=== PATIENT | female | born 1970 | race Caucasian/White ===

== ENCOUNTER 2024-05-18 04:21 | Inpatient (IN) ==
[2024-05-18] MEDS: ONDANSETRON 4 MG/2 ML VIAL IV ONE ×2 (05:01→08:22)
[2024-05-18] MEDS: fentaNYL 100 MCG/2 ML VIAL IV ONE (05:01)
[2024-05-18 05:25] LABS: Basophils # (Auto) 0.03 K/mcL (0.00-0.30); Basophils % (Auto) 0.7 % (0.0-2.0); Eosinophils # (Auto) 0.08 K/mcL (0.00-0.70); Eosinophils % (Auto) 1.8 % (0.0-7.0); Hematocrit 33.4 % (34.1-44.9); Hemoglobin 10.6 g/dL (11.2-15.7); Lymphocytes # (Auto) 1.82 K/mcL (1.50-4.80); Mean Cell Volume 97.1 fL (80.0-100.0); Mean Corpuscular HGB Conc 31.7 g/dL (31.0-36.0); Mean Platelet Volume 11.1 fL (8.8-12.5); Monocytes # (Auto) 0.33 K/mcL (0.10-0.90); Monocytes % (Auto) 7.3 % (1.0-12.0); Neutrophils % (Auto) 50.2 % (38.0-78.0); Platelet Count 100 K/mcL (140-440); RBC 3.44 M/mcL (3.59-5.38); Red Cell Distribution Width 15.8 % (11.5-14.5); WBC 4.6 K/mcL (4.5-11.0)
[2024-05-18 05:39] LABS: Alcohol, Blood 86.3 mg/dL; Alcohol,Blood 0.086 gm/dL (<0.010)
[2024-05-18 05:46] LABS: ALT/SGPT 55 U/L (<40); AST/SGOT 279 U/L (<32); Albumin 4.1 gm/dL (3.2-5.2); Alkaline Phosphatase 262 U/L (39-117); Bilirubin,Total 1.1 mg/dL (0.1-1.0); Blood Urea Nitrogen 3 mg/dL (6-20); Calcium 8.5 mg/dL (8.6-10.4); Carbon Dioxide 21 mmol/L (22-30); Chloride 101 mmol/L (96-108); Glomerular Filtration Rate 97; Glucose 102 mg/dL (70-105); Potassium 2.9 mmol/L (3.3-5.1); Sodium 141 mmol/L (133-145)
[2024-05-18 05:56] LABS: INR 1.2 (0.9-1.1); Prothrombin Time 15.8 sec (11.9-14.5)
[2024-05-18] MEDS: morphine 4 MG/ML VIAL IV ONE (06:38)
[2024-05-18] MEDS: POTASSIUM CHLORIDE 40 MEQ in DEXTROSE 5% IN WATER 500 ML IV ONE (07:49)
[2024-05-18] MEDS: cefTRIAXone 2 GM in DEXTROSE 5% IN WATER 50 ML IV SCH (09:36)
[2024-05-18] MEDS: THIAMINE 200 MG in 0.9 % SODIUM CHLORIDE 50 ML IV SCH (09:51)
[2024-05-18] MEDS ORDERED: LACTULOSE 20 GM/30 ML ORAL.SOL PO PRN (10:24)
[2024-05-18] MEDS: LORazepam 2 MG/ML VIAL IV SCH (10:42)
[2024-05-18] MEDS: 0.9 % SODIUM CHLORIDE 1,000 ML IV SCH (10:43)
[2024-05-18] MEDS: 0.9 % SODIUM CHLORIDE 250 ML IV SCH (11:15)
[2024-05-18] MEDS: PANTOPRAZOLE 80 MG in 0.9 % SODIUM CHLORIDE 100 ML IV SCH (11:17)
[2024-05-18 12:02] LABS: Hematocrit 31.2 % (34.1-44.9); Hemoglobin 9.8 g/dL (11.2-15.7)
[2024-05-18] MEDS: morphine 4 MG/ML VIAL IV SCH (12:12)
[2024-05-18] MEDS: LORazepam 2 MG/ML VIAL IV PRN (12:16)
[2024-05-18] MEDS: OCTREOTIDE ACETATE 500 MCG in 0.9 % SODIUM CHLORIDE 499.5 ML IV SCH (12:37)
[2024-05-18] MEDS: 0.9 % SODIUM CHLORIDE 10 ML SYRINGE IV SCH ×2 (14:03)
[2024-05-18 16:46] LABS: Hematocrit 28.4 % (34.1-44.9); Hemoglobin 9.3 g/dL (11.2-15.7)
[2024-05-18] MEDS: ONDANSETRON 4 MG/2 ML VIAL IV PRN (18:16)
[2024-05-18 18:21] LABS: Potassium 3.8 mmol/L (3.3-5.1)
[2024-05-18] MEDS: morphine 2 MG/ML VIAL IV ONE (18:40)
[2024-05-18] MEDS: morphine 2 MG/ML VIAL ONE (18:45)
[2024-05-18] MEDS: LORazepam 2 MG/ML VIAL IV ONE (22:30)
[2024-05-18 23:01] LABS: Hematocrit 27.2 % (34.1-44.9); Hemoglobin 8.7 g/dL (11.2-15.7)
[2024-05-18] MEDS: PROCHLORPERAZINE 10 MG/2 ML VIAL IV ONE (23:27)
[2024-05-18] MEDS: GABAPENTIN 100 MG CAPSULE PO ONE (23:30)
[2024-05-19] MEDS: LORazepam 2 MG/ML VIAL IV PRN (04:14)
[2024-05-19 06:44] LABS: ALT/SGPT 38 U/L (<40); AST/SGOT 161 U/L (<32); Albumin 3.3 gm/dL (3.2-5.2); Albumin/Globulin Ratio 1.1 (1.0-2.3); Alkaline Phosphatase 178 U/L (39-117); Bilirubin,Direct 0.7 mg/dL (<0.3); Bilirubin,Total 1.1 mg/dL (0.1-1.0); Blood Urea Nitrogen 4 mg/dL (6-20); Calcium 7.4 mg/dL (8.6-10.4); Carbon Dioxide 23 mmol/L (22-30); Chloride 107 mmol/L (96-108); Globulin 2.9 gm/dL (2.2-3.7); Glomerular Filtration Rate 97; Glucose 122 mg/dL (70-105); Lactate Dehydrogenase 181 U/L (135-225); Phosphorous 3.2 mg/dL (2.5-4.5); Sodium 142 mmol/L (133-145); Triglycerides 109 mg/dL (<150); Uric Acid 5.8 mg/dL (2.5-8.0)
[2024-05-19 07:21] LABS: INR 1.3 (0.9-1.1); Prothrombin Time 17.1 sec (11.9-14.5)
[2024-05-19 07:22] LABS: Basophils # (Auto) 0.01 K/mcL (0.00-0.30); Basophils % (Auto) 0.6 % (0.0-2.0); Eosinophils # (Auto) 0.05 K/mcL (0.00-0.70); Eosinophils % (Auto) 3.2 % (0.0-7.0); Hematocrit 25.6 % (34.1-44.9); Hemoglobin 8.1 g/dL (11.2-15.7); Lymphocytes # (Auto) 0.51 K/mcL (1.50-4.80); Lymphocytes % (Auto) 32.7 % (15.5-49.0); Mean Cell Volume 98.1 fL (80.0-100.0); Mean Corpuscular HGB Conc 31.6 g/dL (31.0-36.0); Mean Platelet Volume 11.2 fL (8.8-12.5); Monocytes # (Auto) 0.12 K/mcL (0.10-0.90); Monocytes % (Auto) 7.7 % (1.0-12.0); Neutrophils % (Auto) 55.8 % (38.0-78.0); Platelet Count 48 K/mcL (140-440); RBC 2.61 M/mcL (3.59-5.38); WBC 1.6 K/mcL (4.5-11.0)
[2024-05-19] MEDS: THIAMINE 100 MG in 0.9 % SODIUM CHLORIDE 50 ML IV SCH (09:00)
[2024-05-19] MEDS: GABAPENTIN 300 MG CAPSULE PO SCH (09:00)
[2024-05-19] MEDS: cefTRIAXone 1 GM VIAL IV SCH (09:01)
[2024-05-19] MEDS: POTASSIUM CHLORIDE 10 MEQ/100 ML BAG IV SCH (10:41)
[2024-05-19 11:13] LABS: Hematocrit 29.5 % (34.1-44.9); Hemoglobin 9.5 g/dL (11.2-15.7)
[2024-05-19] MEDS: morphine 2 MG/ML VIAL IV ONE (15:50)
[2024-05-19 16:58] LABS: Basophils # (Auto) 0.01 K/mcL (0.00-0.30); Basophils % (Auto) 0.4 % (0.0-2.0); Eosinophils # (Auto) 0.06 K/mcL (0.00-0.70); Eosinophils % (Auto) 2.3 % (0.0-7.0); Hematocrit 31.1 % (34.1-44.9); Hemoglobin 9.1 g/dL (11.2-15.7); Lymphocytes # (Auto) 0.72 K/mcL (1.50-4.80); Lymphocytes % (Auto) 27.2 % (15.5-49.0); Mean Cell Volume 106.5 fL (80.0-100.0); Mean Corpuscular HGB Conc 29.3 g/dL (31.0-36.0); Mean Platelet Volume 11.7 fL (8.8-12.5); Monocytes % (Auto) 7.5 % (1.0-12.0); Neutrophils % (Auto) 62.6 % (38.0-78.0); Platelet Count 61 K/mcL (140-440); RBC 2.92 M/mcL (3.59-5.38); Red Cell Distribution Width 16.2 % (11.5-14.5); WBC 2.7 K/mcL (4.5-11.0)
[2024-05-19] MEDS: morphine 2 MG/ML VIAL ONE (17:08)
[2024-05-19] MEDS: PANTOPRAZOLE 80 MG in 0.9 % SODIUM CHLORIDE 100 ML IV SCH (18:20)
[2024-05-19 18:38] LABS: Potassium 3.8 mmol/L (3.3-5.1)
[2024-05-19] MEDS: POTASSIUM CHLORIDE 40 MEQ in DEXTROSE 5% IN WATER 250 ML IV ONE (19:29)
[2024-05-19] MEDS: GABAPENTIN 400 MG CAPSULE PO SCH (20:07)
[2024-05-19 22:38] LABS: Hematocrit 28.8 % (34.1-44.9); Hemoglobin 8.6 g/dL (11.2-15.7)
[2024-05-19] MEDS: CYCLOBENZAPRINE 10 MG TABLET PO ONE (23:02)
[2024-05-20] MEDS: morphine 2 MG/ML VIAL IV ONE (01:55)
[2024-05-20] MEDS: morphine 2 MG/ML VIAL ONE (02:33)
[2024-05-20 07:02] LABS: ALT/SGPT 40 U/L (<40); AST/SGOT 176 U/L (<32); Albumin 3.1 gm/dL (3.2-5.2); Albumin/Globulin Ratio 1.1 (1.0-2.3); Alkaline Phosphatase 160 U/L (39-117); Bilirubin,Direct 0.6 mg/dL (<0.3); Blood Urea Nitrogen 3 mg/dL (6-20); Calcium 7.3 mg/dL (8.6-10.4); Carbon Dioxide 21 mmol/L (22-30); Chloride 109 mmol/L (96-108); Globulin 2.8 gm/dL (2.2-3.7); Glomerular Filtration Rate 97; Glucose 122 mg/dL (70-105); Lactate Dehydrogenase 187 U/L (135-225); Phosphorous 2.5 mg/dL (2.5-4.5); Potassium 3.3 mmol/L (3.3-5.1); Sodium 142 mmol/L (133-145); Triglycerides 171 mg/dL (<150); Uric Acid 5.3 mg/dL (2.5-8.0)
[2024-05-20 07:05] LABS: Basophils # (Auto) 0.02 K/mcL (0.00-0.30); Basophils % (Auto) 0.9 % (0.0-2.0); Eosinophils # (Auto) 0.07 K/mcL (0.00-0.70); Eosinophils % (Auto) 3.2 % (0.0-7.0); Hematocrit 27.4 % (34.1-44.9); Hemoglobin 8.2 g/dL (11.2-15.7); Lymphocytes # (Auto) 0.84 K/mcL (1.50-4.80); Lymphocytes % (Auto) 38.9 % (15.5-49.0); Mean Cell Volume 103.8 fL (80.0-100.0); Mean Corpuscular HGB Conc 29.9 g/dL (31.0-36.0); Mean Platelet Volume 11.4 fL (8.8-12.5); Monocytes # (Auto) 0.17 K/mcL (0.10-0.90); Monocytes % (Auto) 7.9 % (1.0-12.0); Neutrophils % (Auto) 49.1 % (38.0-78.0); Platelet Count 56 K/mcL (140-440); RBC 2.64 M/mcL (3.59-5.38); Red Cell Distribution Width 16.2 % (11.5-14.5); WBC 2.2 K/mcL (4.5-11.0)
[2024-05-20 08:18] LABS: INR 1.3 (0.9-1.1); Prothrombin Time 16.7 sec (11.9-14.5)
[2024-05-20] MEDS: LACTULOSE 20 GM/30 ML ORAL.SOL PO SCH (11:23)
[2024-05-20] MEDS ORDERED: IPRATROPIUM/ALBUTEROL 3 ML AMPUL.NEB NEB PRN (11:36)
[2024-05-20] MEDS: POTASSIUM CHLORIDE 10 MEQ/100 ML BAG IV SCH (12:25)
[2024-05-20] MEDS: MAGNESIUM SULFATE 1 GM/100 ML BAG IV SCH (12:26)
[2024-05-20] MEDS: DEXTROSE 5%-1/2NS W/10MEQ KCL 1,000 ML IV SCH (17:07)
[2024-05-21] MEDS ORDERED: NALOXONE HCL 0.4 MG/ML VIAL IV PRN (02:16)
[2024-05-21] MEDS: THIAMINE 500 MG in 0.9 % SODIUM CHLORIDE 50 ML IV ONE (03:08)
[2024-05-21] MEDS: morphine 2 MG/ML VIAL IV PRN (03:15)
[2024-05-21] MEDS: morphine 2 MG/ML VIAL ONE (03:34)
[2024-05-21 06:57] LABS: Basophils # (Auto) 0.01 K/mcL (0.00-0.30); Basophils % (Auto) 0.4 % (0.0-2.0); Eosinophils # (Auto) 0.05 K/mcL (0.00-0.70); Eosinophils % (Auto) 2.2 % (0.0-7.0); Hematocrit 28.5 % (34.1-44.9); Hemoglobin 8.7 g/dL (11.2-15.7); Lymphocytes # (Auto) 0.68 K/mcL (1.50-4.80); Lymphocytes % (Auto) 29.6 % (15.5-49.0); Mean Cell Volume 102.2 fL (80.0-100.0); Mean Corpuscular HGB Conc 30.5 g/dL (31.0-36.0); Mean Platelet Volume 10.7 fL (8.8-12.5); Monocytes # (Auto) 0.19 K/mcL (0.10-0.90); Monocytes % (Auto) 8.3 % (1.0-12.0); Neutrophils % (Auto) 59.5 % (38.0-78.0); Platelet Count 65 K/mcL (140-440); RBC 2.79 M/mcL (3.59-5.38); Red Cell Distribution Width 16.2 % (11.5-14.5); WBC 2.3 K/mcL (4.5-11.0)
[2024-05-21 07:11] LABS: INR 1.4 (0.9-1.1); Prothrombin Time 17.2 sec (11.9-14.5)
[2024-05-21 07:17] LABS: ALT/SGPT 34 U/L (<40); AST/SGOT 116 U/L (<32); Albumin 3.2 gm/dL (3.2-5.2); Albumin/Globulin Ratio 1.2 (1.0-2.3); Alkaline Phosphatase 162 U/L (39-117); Bilirubin,Direct 0.7 mg/dL (<0.3); Bilirubin,Total 1.1 mg/dL (0.1-1.0); Blood Urea Nitrogen 2 mg/dL (6-20); Calcium 7.5 mg/dL (8.6-10.4); Carbon Dioxide 21 mmol/L (22-30); Chloride 109 mmol/L (96-108); Globulin 2.7 gm/dL (2.2-3.7); Glomerular Filtration Rate 97; Glucose 149 mg/dL (70-105); Lactate Dehydrogenase 187 U/L (135-225); Phosphorous 1.8 mg/dL (2.5-4.5); Potassium 3.1 mmol/L (3.3-5.1); Sodium 141 mmol/L (133-145); Triglycerides 170 mg/dL (<150); Uric Acid 4.9 mg/dL (2.5-8.0)
[2024-05-21 08:42] LABS: ABG Methemoglobin 0.4 % (0.4-1.5); Total Hemoglobin 10.1 gm/Dl (12.0-15.0); VBG Base Excess -2 (-2-3); VBG Oxygen Saturation 93.3 % (40.0-70.0); VBG PCO2 36.1 mmHg (41.0-51.0); VBG PO2 152.6 mmHg (25.0-40.0); VBG Total CO2 23.1 mmol/L (25.0-29.0)
[2024-05-21] MEDS: THIAMINE 500 MG in 0.9 % SODIUM CHLORIDE 50 ML IV SCH (09:15)
[2024-05-21] MEDS: LACTULOSE 20 GM/30 ML ORAL.SOL PO SCH (10:33)
[2024-05-21] MEDS: VITAMIN B COMPLEX 1 CAPSULE PO SCH (10:33)
[2024-05-21] MEDS: MAGNESIUM SULFATE 2 GM/50 ML BAG IV ONE (10:53)
[2024-05-21] MEDS: POTASSIUM PHOSPHATE 40 MEQ in DEXTROSE 5% IN WATER 500 ML IV ONE (10:54)
[2024-05-21] MEDS: DEXMEDETOMIDINE 400 MCG in PREMIX 1 BAG IV SCH (13:53)
[2024-05-21] MEDS: DEXMEDETOMIDINE 100 ML IV ONE (13:57)
[2024-05-21] MEDS: NICOTINE 14 MG PATCH TOPICAL SCH (15:30)
[2024-05-21] MEDS: PANTOPRAZOLE 40 MG VIAL IV SCH (20:06)
[2024-05-22 06:41] LABS: Basophils # (Auto) 0.01 K/mcL (0.00-0.30); Basophils % (Auto) 0.3 % (0.0-2.0); Eosinophils # (Auto) 0.07 K/mcL (0.00-0.70); Eosinophils % (Auto) 2.3 % (0.0-7.0); Hematocrit 29.4 % (34.1-44.9); Hemoglobin 9.1 g/dL (11.2-15.7); Lymphocytes # (Auto) 0.82 K/mcL (1.50-4.80); Lymphocytes % (Auto) 26.7 % (15.5-49.0); Mean Cell Volume 101.4 fL (80.0-100.0); Mean Platelet Volume 10.7 fL (8.8-12.5); Monocytes # (Auto) 0.43 K/mcL (0.10-0.90); Neutrophils % (Auto) 56.7 % (38.0-78.0); Platelet Count 65 K/mcL (140-440); Red Cell Distribution Width 16.8 % (11.5-14.5); WBC 3.1 K/mcL (4.5-11.0)
[2024-05-22 06:50] LABS: INR 1.3 (0.9-1.1); Prothrombin Time 16.8 sec (11.9-14.5)
[2024-05-22 07:06] LABS: ALT/SGPT 30 U/L (<40); AST/SGOT 85 U/L (<32); Albumin 3.2 gm/dL (3.2-5.2); Albumin/Globulin Ratio 1.1 (1.0-2.3); Alkaline Phosphatase 160 U/L (39-117); Bilirubin,Direct 0.6 mg/dL (<0.3); Bilirubin,Total 0.9 mg/dL (0.1-1.0); Blood Urea Nitrogen 2 mg/dL (6-20); Calcium 7.4 mg/dL (8.6-10.4); Carbon Dioxide 20 mmol/L (22-30); Chloride 109 mmol/L (96-108); Globulin 2.8 gm/dL (2.2-3.7); Glomerular Filtration Rate 102; Glucose 124 mg/dL (70-105); Lactate Dehydrogenase 173 U/L (135-225); Phosphorous 2.7 mg/dL (2.5-4.5); Potassium 3.5 mmol/L (3.3-5.1); Sodium 140 mmol/L (133-145); Triglycerides 179 mg/dL (<150); Uric Acid 4.3 mg/dL (2.5-8.0)
[2024-05-22] MEDS: DEXMEDETOMIDINE 100 ML IV ONE (19:55)
[2024-05-23 06:54] LABS: ALT/SGPT 26 U/L (<40); AST/SGOT 64 U/L (<32); Alkaline Phosphatase 152 U/L (39-117); Bilirubin,Direct 0.7 mg/dL (<0.3); Bilirubin,Total 1.1 mg/dL (0.1-1.0); Blood Urea Nitrogen 3 mg/dL (6-20); Calcium 7.8 mg/dL (8.6-10.4); Carbon Dioxide 19 mmol/L (22-30); Chloride 106 mmol/L (96-108); Globulin 2.9 gm/dL (2.2-3.7); Glomerular Filtration Rate 97; Glucose 106 mg/dL (70-105); Lactate Dehydrogenase 166 U/L (135-225); Phosphorous 2.6 mg/dL (2.5-4.5); Potassium 3.5 mmol/L (3.3-5.1); Sodium 137 mmol/L (133-145); Triglycerides 216 mg/dL (<150); Uric Acid 4.3 mg/dL (2.5-8.0)
[2024-05-23 07:03] LABS: Basophils # (Auto) 0.02 K/mcL (0.00-0.30); Basophils % (Auto) 0.6 % (0.0-2.0); Eosinophils % (Auto) 3.1 % (0.0-7.0); Hematocrit 29.3 % (34.1-44.9); Hemoglobin 8.9 g/dL (11.2-15.7); Lymphocytes # (Auto) 1.07 K/mcL (1.50-4.80); Lymphocytes % (Auto) 32.7 % (15.5-49.0); Mean Cell Volume 101.7 fL (80.0-100.0); Mean Corpuscular HGB Conc 30.4 g/dL (31.0-36.0); Monocytes # (Auto) 0.52 K/mcL (0.10-0.90); Monocytes % (Auto) 15.9 % (1.0-12.0); Neutrophils % (Auto) 47.7 % (38.0-78.0); Platelet Count 79 K/mcL (140-440); RBC 2.88 M/mcL (3.59-5.38); Red Cell Distribution Width 16.8 % (11.5-14.5); WBC 3.3 K/mcL (4.5-11.0)
[2024-05-23] MEDS: GABAPENTIN 300 MG CAPSULE PO SCH (20:12)
[2024-05-24] MEDS: 0.9 % SODIUM CHLORIDE 250 ML IV SCH (03:45)
[2024-05-24 07:02] LABS: Basophils # (Auto) 0.03 K/mcL (0.00-0.30); Basophils % (Auto) 0.9 % (0.0-2.0); Eosinophils # (Auto) 0.08 K/mcL (0.00-0.70); Eosinophils % (Auto) 2.5 % (0.0-7.0); Hematocrit 27.9 % (34.1-44.9); Hemoglobin 8.7 g/dL (11.2-15.7); Lymphocytes # (Auto) 1.09 K/mcL (1.50-4.80); Lymphocytes % (Auto) 34.1 % (15.5-49.0); Mean Corpuscular HGB Conc 31.2 g/dL (31.0-36.0); Mean Platelet Volume 11.5 fL (8.8-12.5); Monocytes # (Auto) 0.59 K/mcL (0.10-0.90); Monocytes % (Auto) 18.4 % (1.0-12.0); Neutrophils % (Auto) 43.5 % (38.0-78.0); Platelet Count 105 K/mcL (140-440); RBC 2.79 M/mcL (3.59-5.38); WBC 3.2 K/mcL (4.5-11.0)
[2024-05-24 07:29] LABS: ALT/SGPT 24 U/L (<40); AST/SGOT 60 U/L (<32); Alkaline Phosphatase 150 U/L (39-117); Bilirubin,Direct 0.6 mg/dL (<0.3); Blood Urea Nitrogen 3 mg/dL (6-20); Carbon Dioxide 20 mmol/L (22-30); Chloride 106 mmol/L (96-108); Glomerular Filtration Rate 102; Glucose 102 mg/dL (70-105); Lactate Dehydrogenase 177 U/L (135-225); Phosphorous 2.6 mg/dL (2.5-4.5); Potassium 3.4 mmol/L (3.3-5.1); Sodium 138 mmol/L (133-145); Triglycerides 206 mg/dL (<150); Uric Acid 4.3 mg/dL (2.5-8.0)
[2024-05-24] MEDS: THIAMINE 250 MG in 0.9 % SODIUM CHLORIDE 50 ML IV SCH (09:58)
[2024-05-24] MEDS: LACTULOSE 20 GM/30 ML ORAL.SOL PO SCH (09:58)
[2024-05-24] MEDS: POTASSIUM CHLORIDE 20 MEQ TABLET PO SCH (17:33)
[2024-05-25 06:58] LABS: INR 1.4 (0.9-1.1); Prothrombin Time 17.2 sec (11.9-14.5)
[2024-05-25 07:16] LABS: Phosphorous 2.5 mg/dL (2.5-4.5)
[2024-05-25 07:22] LABS: ALT/SGPT 31 U/L (<40); AST/SGOT 85 U/L (<32); Albumin 3.1 gm/dL (3.2-5.2); Albumin/Globulin Ratio 1.1 (1.0-2.3); Alkaline Phosphatase 159 U/L (39-117); Bilirubin,Total 1.2 mg/dL (0.1-1.0); Blood Urea Nitrogen 4 mg/dL (6-20); Calcium 8.7 mg/dL (8.6-10.4); Carbon Dioxide 21 mmol/L (22-30); Chloride 104 mmol/L (96-108); Globulin 2.8 gm/dL (2.2-3.7); Glomerular Filtration Rate 102; Glucose 105 mg/dL (70-105); Potassium 3.6 mmol/L (3.3-5.1); Sodium 137 mmol/L (133-145)
[2024-05-25 08:06] LABS: Basophils # (Auto) 0.03 K/mcL (0.00-0.30); Basophils % (Auto) 0.8 % (0.0-2.0); Eosinophils # (Auto) 0.08 K/mcL (0.00-0.70); Eosinophils % (Auto) 2.3 % (0.0-7.0); Lymphocytes # (Auto) 1.12 K/mcL (1.50-4.80); Lymphocytes % (Auto) 31.7 % (15.5-49.0); Mean Cell Volume 99.7 fL (80.0-100.0); Mean Platelet Volume 11.3 fL (8.8-12.5); Monocytes # (Auto) 0.73 K/mcL (0.10-0.90); Monocytes % (Auto) 20.7 % (1.0-12.0); Neutrophils % (Auto) 44.2 % (38.0-78.0); Platelet Count 157 K/mcL (140-440); RBC 2.91 M/mcL (3.59-5.38); Red Cell Distribution Width 17.3 % (11.5-14.5); WBC 3.5 K/mcL (4.5-11.0)
[2024-05-25] MEDS: MAGNESIUM OXIDE 400 MG TABLET PO SCH (09:22)
[2024-05-25] MEDS: CALCIUM W/VIT D3 500 MG TABLET PO SCH (09:22)
[2024-05-25] MEDS: COLCHICINE 0.6 MG CAPSULE PO ONE (13:27)
[2024-05-25] MEDS: COLCHICINE 0.6 MG CAPSULE PO SCH (21:02)
[2024-05-26 06:45] LABS: Basophils # (Auto) 0.03 K/mcL (0.00-0.30); Basophils % (Auto) 0.8 % (0.0-2.0); Eosinophils # (Auto) 0.12 K/mcL (0.00-0.70); Eosinophils % (Auto) 3.2 % (0.0-7.0); Hematocrit 27.7 % (34.1-44.9); Hemoglobin 8.6 g/dL (11.2-15.7); Lymphocytes % (Auto) 37.6 % (15.5-49.0); Mean Platelet Volume 11.5 fL (8.8-12.5); Monocytes # (Auto) 0.73 K/mcL (0.10-0.90); Monocytes % (Auto) 19.6 % (1.0-12.0); Neutrophils % (Auto) 38.8 % (38.0-78.0); Platelet Count 201 K/mcL (140-440); RBC 2.77 M/mcL (3.59-5.38); Red Cell Distribution Width 17.8 % (11.5-14.5); WBC 3.7 K/mcL (4.5-11.0)
[2024-05-26 06:54] LABS: INR 1.3 (0.9-1.1); Prothrombin Time 16.6 sec (11.9-14.5)
[2024-05-26 07:35] LABS: Phosphorous 3.4 mg/dL (2.5-4.5)
[2024-05-26 07:48] LABS: ALT/SGPT 31 U/L (<40); AST/SGOT 66 U/L (<32); Albumin 3.3 gm/dL (3.2-5.2); Alkaline Phosphatase 148 U/L (39-117); Bilirubin,Total 0.9 mg/dL (0.1-1.0); Blood Urea Nitrogen 6 mg/dL (6-20); Calcium 9.3 mg/dL (8.6-10.4); Carbon Dioxide 21 mmol/L (22-30); Chloride 102 mmol/L (96-108); Globulin 3.3 gm/dL (2.2-3.7); Glomerular Filtration Rate 102; Glucose 90 mg/dL (70-105); Potassium 3.8 mmol/L (3.3-5.1); Sodium 136 mmol/L (133-145)
[2024-05-26] MEDS: ACETAMINOPHEN 325 MG TABLET PO PRN (09:02)
== END 2024-05-26 13:21 | disposition home health service (06) | DRG 896 ==
LOC: ED 04:21 → ICU 10:18
PROVIDERS: ADMIT Student in an Organized Health Care Education/Training Program; ATTEND Internal Medicine